=== PATIENT | female | born 1950 | race Caucasian/White ===

== ENCOUNTER 2025-08-21 15:35 | Emergency (ER) | payer MEDICARE, OTHER ==
[~2025-08-21] VITALS: Ht 162.6 cm; Wt 99.8 kg
[~2025-08-21 15:35] MED LIST: ANTIVERT12.5 MG PO; CLONAZEPAM1 MG PO; CYCLOBENZAPRINE10 MG PO; DIOVAN160 MG PO; IBUPROFEN400 MG PO; INVOKANA PO; LEVEMIR100 UNIT/1 SC; NOVOLOG100 UNIT/1 SC; TRICOR145 MG PO; XANAX1 MG PO; ZOCOR20 MG PO
[2025-08-21 15:50] VITALS: TEMP 98.7
[2025-08-21 16:50] LABS: BASOPHILS % 0.4 % (0.0-1.0); EOSINOPHILS % 2.6 % (0.0-6.0); LYMPHOCYTES % 26.2 % (18.0-39.1); MONOCYTES % 6.4 % (4.4-11.3); NEUTROPHILS % 64.0 % (38.7-80.0); RED CELL DISTRIBUTION WIDTH 14.0 % (11.7-14.4)
[2025-08-21 16:53] VITALS: BP 196/87
[2025-08-21] MEDS: SODIUM CHLORIDE 0.9% 1000ML 1,000 ML IV STA (16:53)
[2025-08-21] MEDS: CLONIDINE HCL 0.1 MG TAB PO ONE (16:53)
[2025-08-21 17:01] LABS: INR 0.97
[2025-08-21 17:11] LABS: EST GLOMERULAR FILTRATION RATE 82.0 ML/MIN (>=60)
[2025-08-21 17:13] LABS: LEUKOCYTE ESTERASE ,URINE NEGATIVE (NEGATIVE); PROTEIN,URINE DIPSTICK NEGATIVE (NEGATIVE); URINE UROBILINOGEN 0.2 mg/dL (0.2 - 1)
[2025-08-21 17:27] LABS: CORONAVIRUS COVID-19 AG NEGATIVE (NEGATIVE)
[2025-08-21 17:33] VITALS: PULSE 79; RESP 16; O2SAT 99
[2025-08-21 17:39] LABS: EPITHELIAL CELLS,URINE MODERATE /LPF; WBC,URINE (MAN) 0-5 /HPF (0-5)
== END 2025-08-21 18:52 | disposition home or self-care (01) ==
LOC: ER 15:50
DX: R35.0 Frequency of micturition (principal); R53.81 Other malaise; E11.65 Type 2 diabetes mellitus with hyperglycemia; I10 Essential (primary) hypertension; M32.9 Systemic lupus erythematosus, unspecified; M06.9 Rheumatoid arthritis, unspecified; R94.31 Abnormal electrocardiogram [ECG] [EKG]
CPT/HCPCS: 36415; 71045; 80053; 81001; 83735; 84484; 85025; 85610; 85730; 87040; 87086; 87426; 93005; 99284; J7030